=== PATIENT | male | born 1960 | race Caucasian/White ===

== ENCOUNTER 2018-07-10 16:53 | Inpatient (IN) | payer OTHER ==
[~2018-07-10] VITALS: Ht 182.9 cm; Wt 99.9 kg
--- NOTE | 2018-07-10 17:22 | NUR ---
"I've been throwing up since 10 this morning, now I've got these shakes going, I'm spinny and shivering." Upper abdominal pain, +N/V, denies diarrhea. EKG done in triage.
[2018-07-10] MEDS ORDERED: ONDANSETRON 2MG/ML, 2ML ONE ×3 (17:28→20:52)
[2018-07-10] MEDS ORDERED: MORPHINE SULFATE 4 MG/ML, 1ML ONE ×2 (17:28→19:28)
[2018-07-10] MEDS ORDERED: SODIUM CHLORIDE FLUSH 10ML SYR IVF ONE (17:30)
[2018-07-10] MEDS ORDERED: ONDANSETRON 2MG/ML, 2ML IVPush ONE (17:30)
[2018-07-10] MEDS: MORPHINE SULFATE 4 MG/ML, 1ML IVPush PRN ×2 (17:34→19:32)
[2018-07-10 17:38] LABS: BASOPHILS # (AUTO) 0.01 x10^3/uL (0-0.1); BASOPHILS % (AUTO) 0 % (0-1); EOSINOPHILS % (AUTO) 0 % (1-7); LYMPHOCYTES # (AUTO) 0.82 x10^3/uL (1-3.4); LYMPHOCYTES % (AUTO) 6 % (22-44); MD NO; MEAN CORPUSCULAR HEMOGLOBIN 31.6 pg (27.5-34.5); MEAN CORPUSCULAR VOLUME 93.1 fL (81-97); MEAN PLATELET VOLUME 8.9 fL (7.4-10.4); MONOCYTES # (AUTO) 0.43 x10^3/uL (0.2-0.8); MONOCYTES % (AUTO) 3 % (2-9); NEUTROPHILS # (AUTO) 12.89 x10^3/uL (1.8-6.8); NEUTROPHILS % (AUTO) 91 % (42-75); PLATELET COUNT 179 x10^3/uL (130-400); RED BLOOD COUNT 5.59 x10^6/uL (4.38-5.82); RED CELL DISTRIBUTION WIDTH 12.3 % (9.4-14.8)
[2018-07-10 17:50] LABS: ALANINE AMINOTRANSFERASE 36 U/L (12-78); ALBUMIN 4.2 g/dL (3.4-5.0); ANION GAP 7 mmol/L (5-15); CALCIUM 9.2 mg/dL (8.5-10.1); CHLORIDE 108 mmol/L (98-107); CREATININE 1.18 mg/dL (0.7-1.3)
[2018-07-10 17:52] LABS: ALKALINE PHOSPHATASE 65 U/L (45-117); BILIRUBIN,TOTAL 1.2 mg/dL (0.2-1.0); TOTAL PROTEIN 7.8 g/dL (6.4-8.2)
[2018-07-10 18:18] LABS: MICROSCOPIC INDICATED
[2018-07-10 18:26] LABS: CULTURE INDICATED? NO
--- NOTE | 2018-07-10 18:30 | NUR ---
REPORT TO [facility] FLORES
[2018-07-10] MEDS ORDERED: OMNIPAQUE 350 MG/ML, 100ML BOTTLE ONE (19:29)
[2018-07-10] MEDS ORDERED: HYDROmorphone 2 MG/ML, 1ML IVPush PRN ×2 (19:30→21:30)
[2018-07-10] MEDS ORDERED: CEFOTETAN PMX 2GM/50ML 50 ML IV ONE (19:30)
--- NOTE | 2018-07-10 19:36 | NUR ---
PT MEDICATED PER MD SHAWN TO CONSULT SURGERY
--- NOTE | 2018-07-10 20:28 | NUR ---
REPORT TO OR
[2018-07-10] MEDS ORDERED: FENTANYL PF 250 MCG/5ML ONE (20:50)
[2018-07-10] MEDS ORDERED: MIDAZOLAM 1 MG/ML, 2ML ONE (20:50)
[2018-07-10] MEDS ORDERED: CEFOTETAN PMX 2GM/50ML 50 ML ONE (20:51)
[2018-07-10] MEDS ORDERED: LIDOCAINE-MPF 2% ,5ML ONE (20:51)
[2018-07-10] MEDS ORDERED: PROPOFOL 10 MG/ML, 20ML ONE (20:51)
[2018-07-10] MEDS ORDERED: LIDOCAINE 2%, 6 ML JEL.PF.APP MM ONE (20:52)
[2018-07-10] MEDS ORDERED: DEXAMETHASONE 4 MG/ML, 1ML ONE ×2 (20:52)
[2018-07-10] MEDS ORDERED: KETOROLAC 30 MG/1 ML ONE (20:57)
[2018-07-10] MEDS ORDERED: SUCCINYLCHOLINE 20 MG/ML, 10ML ONE (20:57)
[2018-07-10] MEDS ORDERED: ROCURONIUM 10MG/ML,5ML ONE (20:57)
[2018-07-10] MEDS ORDERED: BUPIVACAINE/PF-EPI 0.5% 1:200K INFIL ONE (21:28)
[2018-07-10] MEDS ORDERED: ONDANSETRON 2MG/ML, 2ML IV PRN (21:30)
[2018-07-10] MEDS ORDERED: PROMETHAZINE 25 MG/ML, 1ML IV PRN (21:30)
[2018-07-10] MEDS ORDERED: ONDANSETRON ODT 8 MG PO PRN (21:30)
[2018-07-10] MEDS ORDERED: FENTANYL PF 100 MCG/2ML IV PRN (21:30)
[2018-07-10] MEDS ORDERED: MEPERIDINE/PF 25MG/0.5ML IVPush PRN (21:30)
[2018-07-10] MEDS ORDERED: OXYcodone 5 MG/5 ML ORAL.SOL UDC PO PRN (21:30)
[2018-07-10] MEDS ORDERED: HALOPERIDOL 5 MG/ML IV PRN (21:30)
[2018-07-10] MEDS ORDERED: MORPHINE SULFATE 4 MG/ML, 1ML IVPush PRN (21:30)
[2018-07-10] MEDS ORDERED: DIAZEPAM 5 MG/ML, 2ML IVPush PRN (21:30)
[2018-07-10] MEDS ORDERED: EPHEDRINE 50 MG/ML, 1ML IVPush PRN (21:30)
[2018-07-10] MEDS ORDERED: PROMETHAZINE 12.5 MG SUPP PR PRN (21:30)
[2018-07-10] MEDS ORDERED: ALBUTEROL SULFATE 2.5 MG/3 ML NPPB PRN (21:30)
[2018-07-10] MEDS ORDERED: MIDAZOLAM 1 MG/ML, 2ML IV PRN (21:30)
[2018-07-10] MEDS ORDERED: LABETALOL 5MG/ML, 20ML IV PRN (21:30)
[2018-07-10] MEDS ORDERED: hydrALAzine 20 MG/ML, 1ML IV PRN (21:30)
[2018-07-10] MEDS ORDERED: METRONIDAZOLE PMX 500MG/100ML 100 ML ONE (21:39)
[2018-07-10] MEDS ORDERED: GLYCOPYRROLATE 0.4 MG/2 ML, 2ML ONE (21:50)
[2018-07-10] MEDS ORDERED: NEOSTIGMINE 1 MG/ML, 10ML ONE (21:50)
[2018-07-10] MEDS ORDERED: FENTANYL PF 100 MCG/2ML ONE (21:59)
[2018-07-10] MEDS ORDERED: OXYcodone 5 MG/5 ML ORAL.SOL UDC ONE (22:55)
[2018-07-10] MEDS ORDERED: LABETALOL 5MG/ML, 20ML IVPush PRN (23:00)
[2018-07-10] MEDS ORDERED: morphine SULFATE 10 MG/ML, 1ML IVPush PRN (23:00)
[2018-07-10] MEDS ORDERED: ACETAMINOPHEN 325 MG TABLET PO PRN (23:00)
[2018-07-10] MEDS ORDERED: ONDANSETRON 2MG/ML, 2ML IVPush PRN (23:00)
[2018-07-10] MEDS ORDERED: ENALAPRILAT 1.25 MG/ML, 2ML IVPush PRN (23:00)
[2018-07-10 23:52] VITALS: BP 124/76
[2018-07-11 04:23] VITALS: BP 132/74
[2018-07-11] MEDS: METRONIDAZOLE PMX 500MG/100ML 100 ML IVPB SCH ×3 (05:21→22:37)
[2018-07-11 05:45] LABS: MEAN CORPUSCULAR HEMOGLOBIN 32.2 pg (27.5-34.5); MEAN CORPUSCULAR HGB CONC 34.4 g/dL (33.2-36.2); MEAN CORPUSCULAR VOLUME 93.6 fL (81-97); MEAN PLATELET VOLUME 9.6 fL (7.4-10.4); PLATELET COUNT 153 x10^3/uL (130-400); RED CELL DISTRIBUTION WIDTH 12.1 % (9.4-14.8)
[2018-07-11 06:34] LABS: BASOPHILS % (AUTO) 0 % (0-1); EOSINOPHILS % (AUTO) 0 % (1-7); LYMPHOCYTES # (AUTO) 0.35 x10^3/uL (1-3.4); LYMPHOCYTES % (AUTO) 2 % (22-44); MD SCAN; MONOCYTES # (AUTO) 1.26 x10^3/uL (0.2-0.8); MONOCYTES % (AUTO) 7 % (2-9); NEUTROPHILS # (AUTO) 16.25 x10^3/uL (1.8-6.8); NEUTROPHILS % (AUTO) 91 % (42-75)
[2018-07-11 07:57] VITALS: BP 105/57
[2018-07-11] MEDS: CEFOTETAN PMX 1GM/50ML 50 ML IVPB SCH ×2 (08:35→21:25)
[2018-07-11] MEDS: OXYcodone/APAP 7.5/325MG TABLET PO PRN ×2 (11:19→17:28)
[2018-07-11 12:44] VITALS: BP 118/67
[2018-07-11 19:45] VITALS: BP 110/72
[2018-07-12] MEDS: OXYcodone/APAP 7.5/325MG TABLET PO PRN ×4 (00:47→21:11)
[2018-07-12 01:20] VITALS: BP 125/61
[2018-07-12 05:14] LABS: BASOPHILS # (AUTO) 0.02 x10^3/uL (0-0.1); BASOPHILS % (AUTO) 0 % (0-1); EOSINOPHILS # (AUTO) 0.01 x10^3/uL (0-0.4); EOSINOPHILS % (AUTO) 0 % (1-7); LYMPHOCYTES # (AUTO) 1.11 x10^3/uL (1-3.4); LYMPHOCYTES % (AUTO) 10 % (22-44); MD NO; MEAN CORPUSCULAR HEMOGLOBIN 31.8 pg (27.5-34.5); MEAN CORPUSCULAR HGB CONC 34.1 g/dL (33.2-36.2); MEAN CORPUSCULAR VOLUME 93.2 fL (81-97); MONOCYTES # (AUTO) 0.95 x10^3/uL (0.2-0.8); MONOCYTES % (AUTO) 9 % (2-9); NEUTROPHILS # (AUTO) 8.96 x10^3/uL (1.8-6.8); NEUTROPHILS % (AUTO) 81 % (42-75); PLATELET COUNT 145 x10^3/uL (130-400); RED BLOOD COUNT 4.54 x10^6/uL (4.38-5.82); RED CELL DISTRIBUTION WIDTH 12.5 % (9.4-14.8)
[2018-07-12] MEDS: METRONIDAZOLE PMX 500MG/100ML 100 ML IVPB SCH ×3 (06:41→22:25)
[2018-07-12 06:51] VITALS: BP 113/64
[2018-07-12] MEDS: CEFOTETAN PMX 1GM/50ML 50 ML IVPB SCH ×2 (08:34→21:14)
[2018-07-12 13:25] VITALS: BP 119/72
[2018-07-12 19:54] VITALS: BP 115/71
[2018-07-13 03:00] VITALS: BP 123/73
[2018-07-13] MEDS: OXYcodone/APAP 7.5/325MG TABLET PO PRN ×2 (03:17→09:02)
[2018-07-13 05:36] LABS: BASOPHILS # (AUTO) 0.02 x10^3/uL (0-0.1); BASOPHILS % (AUTO) 0 % (0-1); EOSINOPHILS # (AUTO) 0.03 x10^3/uL (0-0.4); EOSINOPHILS % (AUTO) 0 % (1-7); LYMPHOCYTES # (AUTO) 0.71 x10^3/uL (1-3.4); LYMPHOCYTES % (AUTO) 8 % (22-44); MD NO; MEAN CORPUSCULAR HEMOGLOBIN 31.8 pg (27.5-34.5); MEAN CORPUSCULAR HGB CONC 34.2 g/dL (33.2-36.2); MEAN CORPUSCULAR VOLUME 92.8 fL (81-97); MEAN PLATELET VOLUME 8.8 fL (7.4-10.4); MONOCYTES # (AUTO) 0.95 x10^3/uL (0.2-0.8); MONOCYTES % (AUTO) 10 % (2-9); NEUTROPHILS # (AUTO) 7.56 x10^3/uL (1.8-6.8); NEUTROPHILS % (AUTO) 82 % (42-75); PLATELET COUNT 150 x10^3/uL (130-400); RED BLOOD COUNT 4.62 x10^6/uL (4.38-5.82); RED CELL DISTRIBUTION WIDTH 12.3 % (9.4-14.8)
[2018-07-13] MEDS: METRONIDAZOLE PMX 500MG/100ML 100 ML IVPB SCH (06:21)
[2018-07-13 08:41] VITALS: BP 120/75
[2018-07-13] MEDS: CEFOTETAN PMX 1GM/50ML 50 ML IVPB SCH (09:00)
[2018-07-13] MEDS ORDERED: AMOX1TAB64 PO (10:27)
[2018-07-13] MEDS ORDERED: METR500T PO (10:28)
[2018-07-13] MEDS ORDERED: OXYC-306 PO (10:29)
== END 2018-07-13 11:00 | disposition home or self-care (01) | DRG 339 ==
LOC: ED 19:20 → EDIP 20:11 → 4NOR 23:46 → DCLOUNGE 07-13 10:37
PROVIDERS: ADMIT Surgery; ATTEND Surgery
PROC: 0DTJ4ZZ Resection of Appendix, Percutaneous Endoscopic Approach (ICD-10-PCS; principal; 2018-07-10 20:45)
DX: K35.32 Acute appendicitis with perforation, localized peritonitis, and gangrene, without abscess (principal); I96 Gangrene, not elsewhere classified; F12.90 Cannabis use, unspecified, uncomplicated
CPT/HCPCS: 36415; 99285; J3490; 74177; 80053; 81001; 83690; 85025; 88304; 93005; 96374; 96375; 96376; C1729; G0378; J1100; J1885; J2250; J2405; J2704; J2710; J3010; Q9967; J0330